=== PATIENT | female | born 1960 | race Caucasian/White ===

== ENCOUNTER 2017-02-18 05:19 | Day surgery (SDC) | payer BC ==
[~2017-02-18] VITALS: Ht 162.6 cm; Wt 89.8 kg
[~2017-02-18 05:19] MED LIST: ALPRAZOLAM0.5 MG PO; AMBIEN5 MG PO; ASPIR-LOW81 MG PO; BLACK COHOSH40 MG PO; COQ-10100 MG PO; COZAAR25 MG PO; CRESTOR5 MG PO; DEXILANT30 MG PO; DEXILANT60 MG PO; LEXAPRO5 MG PO; MEGA RED PO; METOPROLOL TART25 MG PO; NEXIUM40 MG PO; PREMPRO 0.31 TABLET PO; PREMPRO 0.451 TABLET PO; TRAMADOL HCL50 MG PO; ULTRAM50 MG PO; VITAMIN B-6100 MG PO; VITAMIN D31000 UNIT PO; XANAX0.5 MG PO; ZOLOFT100 MG PO
[2017-02-18 05:52] VITALS: BP 163/80
[2017-02-18 09:00] VITALS: BP 163/82
[2017-02-18 10:00] VITALS: BP 158/81
== END 2017-02-18 10:20 | disposition home or self-care (01) ==
LOC: SDC 05:19
PROC: 0U5G7ZZ Destruction of Vagina, Via Natural or Artificial Opening (ICD-10-PCS; principal; 2017-02-18)
DX: D07.2 Carcinoma in situ of vagina (principal); K21.9 Gastro-esophageal reflux disease without esophagitis; I10 Essential (primary) hypertension; E78.5 Hyperlipidemia, unspecified; F41.9 Anxiety disorder, unspecified; F32.9 Major depressive disorder, single episode, unspecified; Z88.8 Allergy status to other drugs, medicaments and biological substances
CPT/HCPCS: 88305; J0131; J0330; J0690; J1100; J1885; J2250; J2405; J2765; J3010